=== PATIENT | male | born 1950 | race Caucasian/White ===

== ENCOUNTER 2018-07-31 09:48 | Emergency (ER) | payer MEDICARE ==
[~2018-07-31] VITALS: Ht 172.7 cm; Wt 63.5 kg
[2018-07-31 09:57] VITALS: BP 151/95
[2018-07-31] MEDS ORDERED: ACETAMINOPHEN/CODEINE#3 (300/30mg) TAB PO ONE (10:45)
== END 2018-07-31 11:08 | disposition home or self-care (01) ==
LOC: ER 09:51
DX: S42.292A Other displaced fracture of upper end of left humerus, initial encounter for closed fracture (principal); I10 Essential (primary) hypertension; W18.39XA Other fall on same level, initial encounter; Y93.89 Activity, other specified; Y99.8 Other external cause status; Y92.89 Other specified places as the place of occurrence of the external cause
CPT/HCPCS: 73060